=== PATIENT | male | born 1955 | race Caucasian/White ===

== ENCOUNTER 2021-04-28 10:57 | Emergency (ER) | payer MEDICARE, OTHER ==
[~2021-04-28] VITALS: Ht 182.9 cm; Wt 93.0 kg
[2021-04-28] MEDS ORDERED: NORFLEX100 MG PO (12:08)
[2021-04-28] MEDS ORDERED: MEDROLDOSEPACK PO (12:08)
[2021-04-28] MEDS ORDERED: TRAMADOL 50 MG50 MG PO (12:08)
[2021-04-28 12:18] VITALS: BP 107/63
== END 2021-04-28 12:18 | disposition home or self-care (01) ==
LOC: M.ERS 10:57
DX: M54.59 Other low back pain (principal)